=== PATIENT | female | born 1980 | race Caucasian/White ===

== ENCOUNTER 2016-11-23 15:21 | Emergency (ER) | payer OTHER | END 2016-11-23 15:55 | disposition home or self-care (01) | LOC: ER 15:21 | DX: J06.9 Acute upper respiratory infection, unspecified (principal); H66.93 Otitis media, unspecified, bilateral; R05 Cough; F17.210 Nicotine dependence, cigarettes, uncomplicated | CPT/HCPCS: 99282 ==